=== PATIENT | female | born 1945 | race Caucasian/White ===

== ENCOUNTER 2018-01-19 08:34 | Inpatient (IN) | payer MEDICARE, OTHER ==
[2018-01-19] VITALS: BP 135/62
[~2018-01-19] VITALS: Ht 162.6 cm; Wt 110.7 kg
[~2018-01-19 08:34] MED LIST: ACCUPRIL PO; ALPR0.25 PO; ASP325EC PO; CHOL500021 PO; CLON0.2T PO; COLC1TAB3 PO; LEVO150T10 PO; LORA-622 PO; MAGNTAB16 PO; METO-158 PO; METO-159 PO; PANT1INJ3 PO; TRIA50TA2 PO
[2018-01-19 09:07] LABS: Basophils # (auto) 0.1 uL; Basophils % (auto) 0.8 % (0.0-2.0); Eosinophils # (auto) 0.1 uL; Eosinophils % (auto) 1.8 % (0.0-7.0); Hematocrit 41.5 % (36.0-46.0); Lymphocytes # (auto) 0.9 uL; Lymphocytes % (auto) 11.6 % (10.0-50.0); Mean Corpuscular Hemoglobin 29.6 pg (28.0-32.0); Mean Corpuscular Hgb Conc. 33.6 g/dL (32.0-36.0); Mean Corpuscular Volume 88.2 fL (80.0-100.0); Monocytes # (auto) 0.5 uL; Monocytes % (auto) 5.8 % (0.0-12.0); Neutrophils # (auto) 6.2 uL; Platelet Count (auto) 219 10^3/uL (140-450); Red Blood Cells 4.71 10^6/uL (4.0-5.20); Red Cell Distribution Width 14.3 % (11.8-14.3); White Blood Cell 7.7 10^3/uL (4.4-10.8)
[2018-01-19 09:21] LABS: INR 1.03 (0.9-1.15); Partial Thromboplastin Time 37.4 sec (23.78-33.04)
[2018-01-19 09:25] LABS: Alanine Aminotransferase 25 U/L (13-56); Anion Gap 11 (5-15); BUN/Creatinine Ratio 14.9; Blood Urea Nitrogen 25 mg/dL (7-18); Calcium 8.8 mg/dL (8.5-10.1); Carbon Dioxide 25 mmol/L (21-32); Chloride 94 mmol/L (98-107); GFR African American 39 mL/min; GFR Non-African American 32 mL/min; Glucose 147 mg/dL (74-106); Magnesium 1.8 mg/dL (1.6-2.6); Sodium 130 mmol/L (136-145)
[2018-01-19 09:30] LABS: Alkaline Phosphatase 98 U/L (45-117); Aspartate Aminotransferase 24 U/L (15-37); Bilirubin, Total 0.5 mg/dL (0.2-1.0); Total Protein 8.3 g/dL (6.4-8.2)
[2018-01-19] MEDS ORDERED: METOPROLOL SUCCINATE XL 50 MG TAB PO SCH ×2 (10:00→22:00)
[2018-01-19] MEDS ORDERED: DEXTROSE (50%) 50ML SYRG IV PRN (10:00)
[2018-01-19] MEDS ORDERED: QUINAPRIL HCL 10 MG TAB PO SCH (10:00)
[2018-01-19] MEDS ORDERED: TEMAZEPAM 15 MG CAP PO PRN (10:15)
[2018-01-19] MEDS ORDERED: MORPHINE SULFATE 4 MG/ML SYR/VIAL IV PRN ×2 (10:15)
[2018-01-19] MEDS ORDERED: CHOLECALCIFEROL (VITD3) 1,000 UNIT TAB PO ONE (10:15)
[2018-01-19] MEDS ORDERED: ONDANSETRON HCL 4 MG/2 ML VIAL IV PRN (10:15)
[2018-01-19] MEDS ORDERED: NITROGLYCERIN 0.4 MG SL TAB SL PRN (10:15)
[2018-01-19] MEDS ORDERED: DOCUSATE SOD 100 MG CAP PO PRN (10:15)
[2018-01-19] MEDS ORDERED: POTASSIUM CHL 10 Meq TABLET PO ONE (10:15)
[2018-01-19] MEDS ORDERED: HYDROcodone-ACET 5/325MG TAB PO PRN (10:15)
[2018-01-19] MEDS: TRIAMTERENE/HCTZ 37.5/25 MG CAP/TAB PO SCH (10:43)
[2018-01-19] MEDS: APIXABAN 5 MG TAB PO SCH ×2 (10:49→22:08)
[2018-01-19] MEDS: MAGNESIUM OXIDE 400 MG TAB PO SCH (10:49)
[2018-01-19] MEDS: ACCU-CHEK COMFORT CURVE STRIP VI SCH ×3 (11:42→21:53)
[2018-01-19] MEDS: InsuLIN REG 1unit/0.01ml Soln (100units/ml) SC SCH ×3 (11:46→21:53)
[2018-01-19] MEDS: [UNRECOGNIZED DRUG - OTHER] PO SCH ×3 (12:00→22:00)
[2018-01-19] MEDS: SODIUM CHLOR 0.9% PF (SALINE LOCK) 10ML VIAL/SYR IV SCH ×2 (14:01→22:09)
[2018-01-19 15:00] VITALS: BP 118/60
[2018-01-19 16:04] VITALS: BP 117/51
[2018-01-19] MEDS ORDERED: LEVO125T7 PO (17:01)
[2018-01-19] MEDS ORDERED: METO25TA5 PO (17:09)
[2018-01-19] MEDS ORDERED: METO-158 PO (17:10)
[2018-01-19] MEDS ORDERED: APIX5TAB OR (17:11)
[2018-01-19] MEDS ORDERED: CETI1TAB36 PO (17:13)
[2018-01-19 19:48] VITALS: BP 122/79
[2018-01-19 19:49] VITALS: BP 122/79
[2018-01-19] MEDS: FAMOTIDINE 20 MG TAB PO SCH (22:02)
[2018-01-19] MEDS: GLIMEPIRIDE 2 MG TAB PO SCH (22:08)
[2018-01-19] MEDS: METOPROLOL SUCCINATE XL 50 MG TAB PO SCH (22:08)
[2018-01-19] MEDS: ACETAMINOPHEN 325 MG TAB PO PRN (22:10)
[2018-01-20] VITALS (8 sets, daily range): BP systolic 121–170; BP diastolic 54–90
[2018-01-20 01:17] LABS: Urine Bacteria FEW /hpf (None Seen); Urine Blood Negative /uL (Negative); Urine Specific Gravity 1.013 (1.001-1.035); Urine WBC 210 /hpf (0 - 5)
[2018-01-20 05:10] LABS: Basophils # (auto) 0 uL; Basophils % (auto) 0.6 % (0.0-2.0); Eosinophils # (auto) 0.3 uL; Eosinophils % (auto) 4.4 % (0.0-7.0); Hematocrit 34.8 % (36.0-46.0); Hemoglobin 11.7 g/dL (12.2-16.2); Lymphocytes # (auto) 1.2 uL; Lymphocytes % (auto) 17.5 % (10.0-50.0); Mean Corpuscular Hemoglobin 29.5 pg (28.0-32.0); Mean Corpuscular Hgb Conc. 33.4 g/dL (32.0-36.0); Mean Corpuscular Volume 88.3 fL (80.0-100.0); Monocytes # (auto) 0.5 uL; Monocytes % (auto) 7.4 % (0.0-12.0); Neutrophils # (auto) 4.9 uL; Neutrophils % (auto) 70.1 % (37.0-80.0); Platelet Count (auto) 185 10^3/uL (140-450); Red Blood Cells 3.95 10^6/uL (4.0-5.20); Red Cell Distribution Width 14.2 % (11.8-14.3)
[2018-01-20 05:27] LABS: Albumin 3.5 g/dL (3.4-5.0); Calcium 8.3 mg/dL (8.5-10.1); Potassium 4.2 mmol/L (3.5-5.1)
[2018-01-20 05:33] LABS: BUN/Creatinine Ratio 17.8; Bilirubin, Total 0.4 mg/dL (0.2-1.0); Total Protein 7.2 g/dL (6.4-8.2)
[2018-01-20] MEDS: [UNRECOGNIZED DRUG - OTHER] PO SCH (06:00)
[2018-01-20] MEDS: SODIUM CHLOR 0.9% PF (SALINE LOCK) 10ML VIAL/SYR IV SCH ×3 (06:39→22:08)
[2018-01-20] MEDS: LEVOTHYROXINE SODIUM 50 MCG TAB PO SCH (06:40)
[2018-01-20] MEDS: InsuLIN REG 1unit/0.01ml Soln (100units/ml) SC SCH ×5 (06:40→22:13)
[2018-01-20] MEDS: ACCU-CHEK COMFORT CURVE STRIP VI SCH ×4 (06:40→22:12)
[2018-01-20] MEDS: ACETAMINOPHEN 325 MG TAB PO PRN (08:41)
[2018-01-20] MEDS: METOPROLOL SUCCINATE XL 50 MG TAB PO SCH ×2 (09:37→22:12)
[2018-01-20] MEDS: MAGNESIUM OXIDE 400 MG TAB PO SCH (09:38)
[2018-01-20] MEDS: MULTIPLE VITAMIN TAB PO SCH (09:38)
[2018-01-20] MEDS: APIXABAN 5 MG TAB PO SCH ×2 (09:38→22:07)
[2018-01-20] MEDS: FAMOTIDINE 20 MG TAB PO SCH ×2 (09:38→22:07)
[2018-01-20] MEDS: COQ10 100 MG PO SCH (09:52)
[2018-01-20] MEDS: TRIAMTERENE/HCTZ 37.5/25 MG CAP/TAB PO SCH (09:53)
[2018-01-20] MEDS: CHOLECALCIFEROL (VITD3) 1,000 UNIT TAB PO SCH (09:54)
[2018-01-20] MEDS ORDERED: POTASSIUM CHL 10 Meq TABLET PO SCH (10:00)
[2018-01-20] MEDS ORDERED: QUINAPRIL HCL 40 MG TAB PO SCH (10:00)
[2018-01-20] MEDS ORDERED: QUINAPRIL 40 MG PO SCH (10:00)
[2018-01-20] MEDS ORDERED: cefTRIAXone 1GM/50ML D5W 50 ML IV ONE (12:15)
[2018-01-20] MEDS ORDERED: cloNIDine HCL 0.1 MG TAB PO PRN (12:15)
[2018-01-20] MEDS: SODIUM CHLORIDE 0.9% 1,000 ML IV SCH (13:05)
[2018-01-20] MEDS: GLIMEPIRIDE 2 MG TAB PO SCH (22:07)
[2018-01-21 04:00] VITALS: BP 154/83
[2018-01-21] MEDS: SODIUM CHLORIDE 0.9% 1,000 ML IV SCH (04:55)
[2018-01-21] MEDS: SODIUM CHLOR 0.9% PF (SALINE LOCK) 10ML VIAL/SYR IV SCH ×2 (06:00→16:36)
[2018-01-21 06:57] LABS: Calcium 8.8 mg/dL (8.5-10.1); Potassium 4.2 mmol/L (3.5-5.1)
[2018-01-21 06:59] LABS: BUN/Creatinine Ratio 18.7
[2018-01-21] MEDS: LEVOTHYROXINE SODIUM 50 MCG TAB PO SCH (06:59)
[2018-01-21] MEDS: ACCU-CHEK COMFORT CURVE STRIP VI SCH ×2 (06:59→11:56)
[2018-01-21] MEDS: InsuLIN REG 1unit/0.01ml Soln (100units/ml) SC SCH ×2 (06:59→11:30)
[2018-01-21 07:45] VITALS: BP 159/75
[2018-01-21] MEDS ORDERED: cefTRIAXone 1GM/50ML D5W 50 ML IV SCH (09:00)
[2018-01-21] MEDS: APIXABAN 5 MG TAB PO SCH (09:02)
[2018-01-21] MEDS: COQ10 100 MG PO SCH (09:02)
[2018-01-21] MEDS: MULTIPLE VITAMIN TAB PO SCH (09:03)
[2018-01-21] MEDS: MAGNESIUM OXIDE 400 MG TAB PO SCH (09:03)
[2018-01-21] MEDS: FAMOTIDINE 20 MG TAB PO SCH (09:03)
[2018-01-21] MEDS: METOPROLOL SUCCINATE XL 50 MG TAB PO SCH (09:05)
[2018-01-21] MEDS: CHOLECALCIFEROL (VITD3) 1,000 UNIT TAB PO SCH (09:12)
[2018-01-21 12:00] VITALS: BP 164/65
[2018-01-21 12:54] VITALS: BP 164/65
[2018-01-21 15:45] VITALS: BP 131/68
== END 2018-01-21 18:00 | disposition home or self-care (01) | DRG 308 ==
LOC: EDBD 08:34 → ER 08:36 → TELE 08:37 → DOU IN ICU 15:06
PROVIDERS: ADMIT Internal Medicine; ATTEND Internal Medicine
DX: I48.0 Paroxysmal atrial fibrillation (principal); N17.0 Acute kidney failure with tubular necrosis; E87.1 Hypo-osmolality and hyponatremia; N39.0 Urinary tract infection, site not specified; D68.69 Other thrombophilia; Z79.01 Long term (current) use of anticoagulants; E66.01 Morbid (severe) obesity due to excess calories; E03.9 Hypothyroidism, unspecified; Z88.8 Allergy status to other drugs, medicaments and biological substances; Z88.6 Allergy status to analgesic agent; Z88.3 Allergy status to other anti-infective agents; Z91.012 Allergy to eggs; Z53.20 Procedure and treatment not carried out because of patient's decision for unspecified reasons; Z79.82 Long term (current) use of aspirin; Z79.899 Other long term (current) drug therapy; Z95.1 Presence of aortocoronary bypass graft; Z98.51 Tubal ligation status; Z86.73 Personal history of transient ischemic attack (TIA), and cerebral infarction without residual deficits; I48.92 Unspecified atrial flutter; I12.9 Hypertensive chronic kidney disease with stage 1 through stage 4 chronic kidney disease, or unspecified chronic kidney disease; E11.22 Type 2 diabetes mellitus with diabetic chronic kidney disease; E78.5 Hyperlipidemia, unspecified; E11.21 Type 2 diabetes mellitus with diabetic nephropathy; N18.3 Chronic kidney disease, stage 3 (moderate); I70.0 Atherosclerosis of aorta; I05.0 Rheumatic mitral stenosis
CPT/HCPCS: 36415; 71045; 80048; 80053; 81001; 82962; 83036; 83735; 83880; 84443; 84484; 85025; 85610; 85730; 87081; 87086; 93005; 93306; 94660; 94761; 96374; A6257; G0378; J0696; J1815; J2405

== ENCOUNTER 2021-01-10 15:43 | Emergency (ER) | payer MEDICARE, OTHER ==
[~2021-01-10] VITALS: Ht 160 cm; Wt 95.3 kg
[~2021-01-10 15:43] MED LIST changes: +APIX5TAB OR; -ASP325EC PO; +CETI1TAB36 PO; +LEVO125T7 PO; -LEVO150T10 PO; -METO-159 PO; +METO25TA5 PO
[2021-01-10 16:34] VITALS: BP 151/55
== END 2021-01-10 21:02 | disposition home or self-care (01) ==
LOC: ER 15:43
DX: S83.91XA Sprain of unspecified site of right knee, initial encounter (principal); I10 Essential (primary) hypertension; E11.9 Type 2 diabetes mellitus without complications; I48.91 Unspecified atrial fibrillation; Z86.73 Personal history of transient ischemic attack (TIA), and cerebral infarction without residual deficits; Z95.1 Presence of aortocoronary bypass graft; Z79.899 Other long term (current) drug therapy; Z88.1 Allergy status to other antibiotic agents; Z88.8 Allergy status to other drugs, medicaments and biological substances; Z88.5 Allergy status to narcotic agent; Z88.7 Allergy status to serum and vaccine; Z91.012 Allergy to eggs; W01.0XXA Fall on same level from slipping, tripping and stumbling without subsequent striking against object, initial encounter; Y93.89 Activity, other specified; Y92.89 Other specified places as the place of occurrence of the external cause; Y99.8 Other external cause status
CPT/HCPCS: 29505; 73562

== ENCOUNTER 2021-12-07 16:59 | Inpatient (IN) | payer MEDICARE, OTHER ==
[~2021-12-07] VITALS: Ht 165.1 cm; Wt 105.3 kg
[2021-12-07 19:33] LABS: Urine Bacteria FEW /hpf (None Seen); Urine Blood Negative /uL (Negative); Urine Specific Gravity 1.006 (1.001-1.035); Urine WBC 4 /hpf (0 - 5)
[2021-12-07 20:39] LABS: Basophils # (auto) 0.1 10 ^3/uL (0-0.2); Basophils % (auto) 1.1 % (0.0-2.0); Eosinophils # (auto) 0.2 10 ^3/uL (0-0.8); Eosinophils % (auto) 2.4 % (0.0-7.0); Hematocrit 34.5 % (36.0-46.0); Hemoglobin 11.2 g/dL (12.2-16.2); Lymphocytes # (auto) 0.8 10 ^3/uL (0.4-5.4); Mean Corpuscular Hemoglobin 29.3 pg (28.0-32.0); Mean Corpuscular Hgb Conc. 32.5 g/dL (32.0-36.0); Mean Corpuscular Volume 90.1 fL (80.0-100.0); Monocytes # (auto) 0.5 10 ^3/uL (0-1.3); Monocytes % (auto) 4.8 % (0.0-12.0); Neutrophils # (auto) 8.1 10 ^3/uL (1.6-8.6); Neutrophils % (auto) 83.7 % (37.0-80.0); Red Blood Cells 3.82 10^6/uL (4.0-5.20); Red Cell Distribution Width 14.4 % (11.8-14.3); White Blood Cell 9.7 10^3/uL (4.4-10.8)
[2021-12-07 20:58] LABS: Albumin 3.9 g/dL (3.4-5.0); Calcium 9.1 mg/dL (8.5-10.1); Potassium 4.4 mmol/L (3.5-5.1)
[2021-12-07 21:12] LABS: Bilirubin, Total 0.4 mg/dL (0.2-1.0); Total Protein 7.6 g/dL (6.4-8.2)
[2021-12-07] MEDS ORDERED: DEXTROSE (50%) 50ML SYRG IV PRN (22:00)
[2021-12-07] MEDS ORDERED: levoFLOXacin 500MG 100 ML IV ONE (22:00)
[2021-12-07] MEDS ORDERED: InsuLIN REG 1unit/0.01ml Soln (100units/ml) SC SCH (22:00)
[2021-12-07] MEDS ORDERED: ONDANSETRON HCL 4 MG/2 ML VIAL IV PRN (22:00)
[2021-12-07] MEDS ORDERED: NITROGLYCERIN 0.4 MG SL TAB SL PRN (23:00)
[2021-12-07] MEDS: SODIUM CHLORIDE 0.9% 1,000 ML IV SCH (23:11)
[2021-12-07 23:17] LABS: INR 1.06 (0.9-1.15)
[2021-12-07] MEDS: APIXABAN 5 MG TAB PO SCH (23:23)
[2021-12-07] MEDS: ACCU-CHEK COMFORT CURVE STRIP VI SCH (23:28)
[2021-12-07] MEDS: FAMOTIDINE (10MG/ML) 2ML VL IV SCH (23:30)
[2021-12-08] MEDS: ACETAMINOPHEN 325 MG TAB PO PRN ×3 (00:32→14:32)
[2021-12-08 06:16] LABS: Basophils # (auto) 0 10 ^3/uL (0-0.2); Basophils % (auto) 0.5 % (0.0-2.0); Eosinophils # (auto) 0.2 10 ^3/uL (0-0.8); Eosinophils % (auto) 2.4 % (0.0-7.0); Hematocrit 32.5 % (36.0-46.0); Hemoglobin 10.8 g/dL (12.2-16.2); Lymphocytes # (auto) 0.9 10 ^3/uL (0.4-5.4); Lymphocytes % (auto) 9.7 % (10.0-50.0); Mean Corpuscular Hemoglobin 29.7 pg (28.0-32.0); Mean Corpuscular Hgb Conc. 33.1 g/dL (32.0-36.0); Mean Corpuscular Volume 89.6 fL (80.0-100.0); Monocytes # (auto) 0.6 10 ^3/uL (0-1.3); Monocytes % (auto) 6.1 % (0.0-12.0); Neutrophils # (auto) 7.5 10 ^3/uL (1.6-8.6); Neutrophils % (auto) 81.3 % (37.0-80.0); Red Blood Cells 3.62 10^6/uL (4.0-5.20); Red Cell Distribution Width 14.5 % (11.8-14.3); White Blood Cell 9.2 10^3/uL (4.4-10.8)
[2021-12-08 06:32] LABS: Albumin 3.6 g/dL (3.4-5.0); Calcium 8.9 mg/dL (8.5-10.1); Potassium 4.7 mmol/L (3.5-5.1)
[2021-12-08] MEDS: ACCU-CHEK COMFORT CURVE STRIP VI SCH (06:37)
[2021-12-08 06:39] LABS: BUN/Creatinine Ratio 14.2; Bilirubin, Total 0.6 mg/dL (0.2-1.0); Total Protein 7.1 g/dL (6.4-8.2)
[2021-12-08] MEDS ORDERED: InsuLIN REG 1unit/0.01ml Soln (100units/ml) SC SCH (07:00)
[2021-12-08] MEDS: APIXABAN 5 MG TAB PO SCH (09:54)
[2021-12-08] MEDS ORDERED: LEVOTHYROXINE SODIUM 25 MCG TAB PO ONE ×2 (11:50→12:00)
[2021-12-08] MEDS ORDERED: LEVOTHYROXINE SODIUM 112 MCG TAB PO ONE ×2 (12:00)
[2021-12-08 12:15] VITALS: BP 128/65
[2021-12-08 12:30] VITALS: BP 128/65
[2021-12-08 13:27] VITALS: BP 128/65
[2021-12-08] MEDS ORDERED: POTA1TAB61 PO (14:22)
[2021-12-08] MEDS: SODIUM CHLORIDE 0.9% 1,000 ML IV SCH ×2 (14:40→14:59)
[2021-12-08] MEDS: hydrALAZINE HCL 20 MG/ML VL IV PRN ×2 (16:07→18:30)
[2021-12-08 17:00] VITALS: BP 121/65
[2021-12-08 20:00] VITALS: BP 163/79
[2021-12-08] MEDS ORDERED: HYDROmorphone HCL 2 MG/ML VL/or syr IV PRN (20:30)
[2021-12-08] MEDS: FAMOTIDINE (10MG/ML) 2ML VL IV SCH (21:36)
[2021-12-08] MEDS: POTASSIUM CHL 10 Meq TABLET PO SCH (21:36)
[2021-12-08] MEDS: levoFLOXacin 250MG 100 ML IV SCH (21:38)
[2021-12-08 22:00] VITALS: BP 163/79
[2021-12-08] MEDS ORDERED: MAGNESIUM CHLORIDE PO SCH (22:00)
[2021-12-09 05:17] VITALS: BP_SYST 173; BP_DIAS 62; BP_DIAS 96
[2021-12-09] MEDS: hydrALAZINE HCL 20 MG/ML VL IV PRN (05:40)
[2021-12-09] MEDS: LEVOTHYROXINE SODIUM 112 MCG TAB PO SCH (06:15)
[2021-12-09] MEDS: LEVOTHYROXINE SODIUM 25 MCG TAB PO SCH (06:15)
[2021-12-09] MEDS: HYDROcodone-ACET 5/325MG TAB PO PRN (06:15)
[2021-12-09] MEDS: SODIUM CHLORIDE 0.9% 1,000 ML IV SCH (07:20)
[2021-12-09 09:24] VITALS: BP 116/45
[2021-12-09] MEDS: POTASSIUM CHL 10 Meq TABLET PO SCH ×2 (09:50→20:55)
[2021-12-09] MEDS: ALPRAZolam 0.5 MG TAB PO SCH ×2 (11:11→20:54)
[2021-12-09] MEDS ORDERED: FUROSEMIDE 40 MG TAB PO ONE (11:30)
[2021-12-09 12:57] VITALS: BP 118/58
[2021-12-09 13:03] VITALS: BP 151/86
[2021-12-09] MEDS: ACETAMINOPHEN 325 MG TAB PO PRN (13:12)
[2021-12-09] MEDS ORDERED: ALBUTEROL SULF 2.5 MG/0.5ML(0.5%) NEB SOLN NEB PRN (17:15)
[2021-12-09] MEDS: FUROSEMIDE 20 MG TAB PO SCH (17:22)
[2021-12-09] MEDS: CARVEDILOL 12.5 MG TAB PO SCH (20:55)
[2021-12-09] MEDS: METOPROLOL TARTRATE 50 MG TAB PO SCH (20:55)
[2021-12-09] MEDS: FAMOTIDINE (10MG/ML) 2ML VL IV SCH (20:55)
[2021-12-09] MEDS: MAGNESIUM CHLORIDE PO SCH (20:56)
[2021-12-09] MEDS: levoFLOXacin 250MG 100 ML IV SCH (20:56)
[2021-12-09 21:58] VITALS: BP 154/79
[2021-12-09] MEDS ORDERED: HYDROcodone-ACET 5/325MG TAB PO PRN (22:30)
[2021-12-09] MEDS ORDERED: ACETAMINOPHEN 325 MG TAB PO PRN (22:45)
[2021-12-10] VITALS (7 sets, daily range): BP systolic 96–154; BP diastolic 54–82
[2021-12-10] MEDS: ACETAMINOPHEN 325 MG TAB PO PRN ×2 (04:05→19:42)
[2021-12-10] MEDS: FUROSEMIDE 20 MG TAB PO SCH ×2 (05:54→18:48)
[2021-12-10] MEDS: ALPRAZolam 0.5 MG TAB PO SCH ×3 (05:54→21:49)
[2021-12-10] MEDS: LEVOTHYROXINE SODIUM 112 MCG TAB PO SCH (05:55)
[2021-12-10] MEDS: LEVOTHYROXINE SODIUM 25 MCG TAB PO SCH (05:55)
[2021-12-10] MEDS: hydrALAZINE HCL 20 MG/ML VL IV PRN (10:46)
[2021-12-10] MEDS: TRIAMTERENE/HCTZ 37.5/25 MG CAP/TAB PO SCH (10:47)
[2021-12-10] MEDS: POTASSIUM CHL 10 Meq TABLET PO SCH ×2 (10:47→21:27)
[2021-12-10] MEDS: HYDROcodone-ACET 5/325MG TAB PO PRN (10:48)
[2021-12-10] MEDS: CARVEDILOL 12.5 MG TAB PO SCH (10:48)
[2021-12-10] MEDS: METOPROLOL TARTRATE 50 MG TAB PO SCH ×2 (10:49→21:27)
[2021-12-10] MEDS: MAGNESIUM CHLORIDE PO SCH ×2 (10:50→21:28)
[2021-12-10 13:04] LABS: Hepatitis B Surface Antibody Negative (Negative)
[2021-12-10 13:38] LABS: Hepatitis A Total Antibody Positive (Negative)
[2021-12-10] MEDS ORDERED: cloNIDine HCL 0.1 MG TAB PO PRN (14:00)
[2021-12-10] MEDS: SODIUM CHLORIDE 0.9% 1,000 ML IV SCH ×2 (16:16)
[2021-12-10 20:27] LABS: Hepatitis C Antibody Negative (Negative)
[2021-12-10] MEDS: ENOXAPARIN SOD 120 MG/0.8 ML SYRINGE SC SCH (21:28)
[2021-12-10] MEDS: levoFLOXacin 250MG 100 ML IV SCH (21:28)
[2021-12-10 22:41] LABS: Cholesterol 162 mg/dL (< 200); HDL Cholesterol 66 mg/dL (40-59); LDL Cholesterol 80 mg/dL (< 100); Triglycerides 113 mg/dL (< 150)
[2021-12-11 05:00] VITALS: BP 119/53
[2021-12-11] MEDS: FUROSEMIDE 20 MG TAB PO SCH ×2 (05:37→18:00)
[2021-12-11] MEDS: LEVOTHYROXINE SODIUM 112 MCG TAB PO SCH (05:38)
[2021-12-11] MEDS: ALPRAZolam 0.5 MG TAB PO SCH ×4 (05:38→21:54)
[2021-12-11] MEDS: LEVOTHYROXINE SODIUM 25 MCG TAB PO SCH (05:38)
[2021-12-11 06:46] LABS: Magnesium 1.8 mg/dL (1.6-2.6)
[2021-12-11 09:00] VITALS: BP 134/76
[2021-12-11 09:09] LABS: Basophils # (auto) 0.1 10 ^3/uL (0-0.2); Basophils % (auto) 1.6 % (0.0-2.0); Eosinophils # (auto) 0.2 10 ^3/uL (0-0.8); Eosinophils % (auto) 3.2 % (0.0-7.0); Hematocrit 31.4 % (36.0-46.0); Hemoglobin 10.6 g/dL (12.2-16.2); Lymphocytes # (auto) 0.7 10 ^3/uL (0.4-5.4); Lymphocytes % (auto) 10.9 % (10.0-50.0); Mean Corpuscular Hemoglobin 30.1 pg (28.0-32.0); Mean Corpuscular Hgb Conc. 33.7 g/dL (32.0-36.0); Mean Corpuscular Volume 89.5 fL (80.0-100.0); Monocytes # (auto) 0.5 10 ^3/uL (0-1.3); Monocytes % (auto) 7.2 % (0.0-12.0); Neutrophils # (auto) 5.2 10 ^3/uL (1.6-8.6); Neutrophils % (auto) 77.1 % (37.0-80.0); Red Blood Cells 3.51 10^6/uL (4.0-5.20); Red Cell Distribution Width 14.3 % (11.8-14.3); White Blood Cell 6.8 10^3/uL (4.4-10.8)
[2021-12-11 09:10] LABS: Albumin 3.5 g/dL (3.4-5.0); Calcium 8.6 mg/dL (8.5-10.1); Potassium 4.6 mmol/L (3.5-5.1)
[2021-12-11 09:14] LABS: Bilirubin, Total 0.5 mg/dL (0.2-1.0)
[2021-12-11] MEDS: SODIUM CHLORIDE 0.9% 1,000 ML IV SCH (09:20)
[2021-12-11] MEDS: TRIAMTERENE/HCTZ 37.5/25 MG CAP/TAB PO SCH (09:56)
[2021-12-11] MEDS: MAGNESIUM CHLORIDE PO SCH ×2 (09:57→21:52)
[2021-12-11] MEDS: LOSARTAN POTASSIUM 50 MG TAB PO SCH (09:58)
[2021-12-11] MEDS: METOPROLOL TARTRATE 50 MG TAB PO SCH ×2 (09:59→21:53)
[2021-12-11] MEDS: POTASSIUM CHL 10 Meq TABLET PO SCH ×2 (10:00→21:53)
[2021-12-11] MEDS: ENOXAPARIN SOD 120 MG/0.8 ML SYRINGE SC SCH ×2 (10:00→21:54)
[2021-12-11 10:04] LABS: BUN/Creatinine Ratio 17.5
[2021-12-11] MEDS: ACETAMINOPHEN 325 MG TAB PO PRN ×2 (11:51→22:19)
[2021-12-11 13:00] VITALS: BP 148/68
[2021-12-11] MEDS ORDERED: ALLOPURINOL 300 MG TAB PO ONE (14:00)
[2021-12-11 16:32] VITALS: BP 144/78
[2021-12-11] MEDS: levoFLOXacin 250MG 100 ML IV SCH (21:52)
[2021-12-11 22:00] VITALS: BP 144/76
[2021-12-12] MEDS: SODIUM CHLORIDE 0.9% 1,000 ML IV SCH (02:00)
[2021-12-12 05:00] VITALS: BP 141/78
[2021-12-12] MEDS: ALPRAZolam 0.5 MG TAB PO SCH ×2 (06:00→13:11)
[2021-12-12] MEDS: LEVOTHYROXINE SODIUM 112 MCG TAB PO SCH (06:04)
[2021-12-12] MEDS: FUROSEMIDE 20 MG TAB PO SCH (06:04)
[2021-12-12] MEDS: LEVOTHYROXINE SODIUM 25 MCG TAB PO SCH (06:05)
[2021-12-12 09:05] VITALS: BP 166/90
[2021-12-12] MEDS: TRIAMTERENE/HCTZ 37.5/25 MG CAP/TAB PO SCH (09:57)
[2021-12-12] MEDS: POTASSIUM CHL 10 Meq TABLET PO SCH (09:57)
[2021-12-12] MEDS: LOSARTAN POTASSIUM 50 MG TAB PO SCH (09:58)
[2021-12-12] MEDS: METOPROLOL TARTRATE 50 MG TAB PO SCH (09:59)
[2021-12-12] MEDS: ENOXAPARIN SOD 120 MG/0.8 ML SYRINGE SC SCH (10:00)
[2021-12-12] MEDS ORDERED: ALLOPURINOL 300 MG TAB PO SCH (10:00)
[2021-12-12] MEDS: MAGNESIUM CHLORIDE PO SCH (10:01)
[2021-12-12] MEDS ORDERED: LEVO500T31 PO (10:56)
[2021-12-12 13:05] VITALS: BP 155/73
[2021-12-12] MEDS: HYDROcodone-ACET 5/325MG TAB PO PRN (13:12)
[2021-12-12] MEDS: ACETAMINOPHEN 325 MG TAB PO PRN (13:17)
[2021-12-12 13:28] VITALS: BP 155/76
== END 2021-12-12 15:15 | disposition home or self-care (01) | DRG 432 ==
LOC: EDBD 16:59 → ER 17:00 → OVERFLOW 22:49 → WEST WING 23:46 → OVERFLOW 12-08 00:11 → WEST WING 12-08 10:33 → TELE-WESTW 12-11 09:53
PROVIDERS: ADMIT Nurse Practitioner Family; ATTEND Family Medicine
PROC: 0W9G3ZZ Drainage of Peritoneal Cavity, Percutaneous Approach (ICD-10-PCS; principal; 2021-12-10)
DX: K74.60 Unspecified cirrhosis of liver (principal); G93.41 Metabolic encephalopathy; J69.0 Pneumonitis due to inhalation of food and vomit; I50.43 Acute on chronic combined systolic (congestive) and diastolic (congestive) heart failure; R18.8 Other ascites; E44.0 Moderate protein-calorie malnutrition; E87.1 Hypo-osmolality and hyponatremia; N39.0 Urinary tract infection, site not specified; E11.21 Type 2 diabetes mellitus with diabetic nephropathy; E11.40 Type 2 diabetes mellitus with diabetic neuropathy, unspecified; Z20.822 Contact with and (suspected) exposure to COVID-19; E11.51 Type 2 diabetes mellitus with diabetic peripheral angiopathy without gangrene; E03.9 Hypothyroidism, unspecified; I10 Essential (primary) hypertension; E11.65 Type 2 diabetes mellitus with hyperglycemia; S09.90XA Unspecified injury of head, initial encounter; W18.39XA Other fall on same level, initial encounter; E66.01 Morbid (severe) obesity due to excess calories; K57.90 Diverticulosis of intestine, part unspecified, without perforation or abscess without bleeding; F17.200 Nicotine dependence, unspecified, uncomplicated; F41.9 Anxiety disorder, unspecified; I48.0 Paroxysmal atrial fibrillation; Z79.01 Long term (current) use of anticoagulants; Z80.8 Family history of malignant neoplasm of other organs or systems; Z88.5 Allergy status to narcotic agent; Z88.8 Allergy status to other drugs, medicaments and biological substances; Z68.38 Body mass index [BMI] 38.0-38.9, adult; Z83.3 Family history of diabetes mellitus; Y93.89 Activity, other specified; Y92.89 Other specified places as the place of occurrence of the external cause; Y99.8 Other external cause status; Z95.1 Presence of aortocoronary bypass graft; Z82.3 Family history of stroke; Z82.49 Family history of ischemic heart disease and other diseases of the circulatory system; I11.0 Hypertensive heart disease with heart failure
CPT/HCPCS: 36415; 70450; 71045; 73130; 74176; 76700; 76942; 80053; 80061; 81001; 82105; 82962; 83036; 83690; 83735; 83880; 84443; 85025; 85610; 85730; 86301; 86304; 86704; 86706; 86708; 86803; 87086; 87205; 87340; 89051; 93005; 93306; 96365; 96375; 97163; G0378; J1956; J2405; J3490

== ENCOUNTER 2021-12-13 01:34 | Emergency (ER) | payer MEDICARE, OTHER ==
[~2021-12-13] VITALS: Ht 160 cm; Wt 81.0 kg
[~2021-12-13 01:34] MED LIST changes: +LEVO500T31 PO; +POTA1TAB61 PO
[2021-12-13] MEDS ORDERED: D5W/SOD CHL 0.45%/KCL 20MEQ 1,000 ML IV SCH (02:00)
[2021-12-13 02:50] LABS: Basophils # (auto) 0.1 10 ^3/uL (0-0.2); Basophils % (auto) 0.5 % (0.0-2.0); Eosinophils # (auto) 0 10 ^3/uL (0-0.8); Eosinophils % (auto) 0.4 % (0.0-7.0); Hematocrit 30.1 % (36.0-46.0); Hemoglobin 10.1 g/dL (12.2-16.2); Lymphocytes # (auto) 0.8 10 ^3/uL (0.4-5.4); Lymphocytes % (auto) 7.9 % (10.0-50.0); Mean Corpuscular Hemoglobin 29.7 pg (28.0-32.0); Mean Corpuscular Hgb Conc. 33.5 g/dL (32.0-36.0); Mean Corpuscular Volume 88.7 fL (80.0-100.0); Monocytes # (auto) 0.8 10 ^3/uL (0-1.3); Monocytes % (auto) 7.7 % (0.0-12.0); Neutrophils # (auto) 8.8 10 ^3/uL (1.6-8.6); Neutrophils % (auto) 83.5 % (37.0-80.0); Red Blood Cells 3.39 10^6/uL (4.0-5.20); Red Cell Distribution Width 14.1 % (11.8-14.3); White Blood Cell 10.5 10^3/uL (4.4-10.8)
[2021-12-13 02:59] LABS: Albumin 3.6 g/dL (3.4-5.0); Calcium 8.9 mg/dL (8.5-10.1); Potassium 4.6 mmol/L (3.5-5.1)
[2021-12-13 03:02] LABS: Bilirubin, Total 0.5 mg/dL (0.2-1.0)
[2021-12-13 03:20] LABS: Urine Bacteria NONE SEEN /hpf (None Seen); Urine Blood Negative /uL (Negative); Urine WBC 1 /hpf (0 - 5)
[2021-12-13] MEDS ORDERED: MIDAZOLAM HCL 5 MG/ML-1ML VIAL IV ONE (03:30)
[2021-12-13] MEDS ORDERED: ROCURONIUM 10MG/ML 10ML VIAL IV ONE ×2 (03:30→04:45)
[2021-12-13] MEDS ORDERED: ETOMIDATE (2MG/ML) 20ML VIAL IV ONE (03:30)
[2021-12-13] MEDS ORDERED: MIDAZOLAM DRIP 50 mg/50mL 50 ML IV SCH (03:45)
[2021-12-13] MEDS ORDERED: levETIRAcetam 500 MG/5ML INJ IV ONE (04:12)
[2021-12-13 04:51] VITALS: BP 109/69
== END 2021-12-13 05:19 | disposition short-term general hospital (02) ==
LOC: EDBD 01:34 → ER 01:34
DX: S06.5X0A Traumatic subdural hemorrhage without loss of consciousness, initial encounter (principal); R41.82 Altered mental status, unspecified; K74.60 Unspecified cirrhosis of liver; R18.8 Other ascites; I10 Essential (primary) hypertension; E11.9 Type 2 diabetes mellitus without complications; I48.91 Unspecified atrial fibrillation; Z86.73 Personal history of transient ischemic attack (TIA), and cerebral infarction without residual deficits; Z95.1 Presence of aortocoronary bypass graft; Z79.2 Long term (current) use of antibiotics; Z79.899 Other long term (current) drug therapy; Z88.5 Allergy status to narcotic agent; Z88.8 Allergy status to other drugs, medicaments and biological substances; Z91.012 Allergy to eggs; X58.XXXA Exposure to other specified factors, initial encounter; Y93.89 Activity, other specified; Y92.89 Other specified places as the place of occurrence of the external cause; Y99.8 Other external cause status
CPT/HCPCS: 31500; 36415; 36600; 70450; 71045; 80053; 81001; 82140; 82805; 82962; 83605; 83880; 84484; 85025; 93005; 96361; 96365; 99285; J1953; J2250; J7060